=== PATIENT | female | born 1955 | race Caucasian/White ===

== ENCOUNTER 2017-05-18 20:57 | Emergency (ER) | payer BC ==
[2017-05-18 21:10] VITALS: BP 179/77
--- NOTE | 2017-05-18 21:32 | EDM.PDOC ---
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 Transvag total hysterectomy with bilateral oopherectomy on 04/28/16. Pt notes no complications until 5pm tonight, noted small spooting, took shower and sat on toilet with a large amount of bleeding and passing few grape size clots. Mild lower abdominal cramping this afternoon and just not feeling well. 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: Reports: Dysfunctional Uterine Bleeding Other OB/BYN History: hysterectomy 04/28/2017 Endocrine/Metabolic History: Reports: Hypothyroidism Social & Family History - Tobacco Use Smoking Status *Q: Unknown Ever Smoked - Caffeine Use Caffeine Use: Reports: Coffee, Soda - Recreational Drug Use Recreational Drug Use: No ED ROS GENERAL - Review of Systems Review Of Systems: See Below Constitutional: Reports: No Symptoms HEENT: Reports: Glasses Respiratory: Reports: No Symptoms Cardiovascular: Reports: No Symptoms GI/Abdominal: Reports: Abdominal Pain (mild lower abdominal ache) : Reports: Other (vaginal bleeding) Musculoskeletal: Reports: No Symptoms Skin: Reports: No Symptoms, Wound (lap incisions) Neurological: Reports: No Symptoms ED EXAM, RENAL/ - Physical Exam Exam: See Below Exam Limited By: No Limitations General Appearance: Alert, No Apparent Distress, Obese Eye Exam: Bilateral Eye: EOMI Ears: Normal External Exam Nose: Normal Inspection Throat/Mouth: Normal Inspection Head: Atraumatic, Other Neck: Normal Inspection, Full Range of Motion Respiratory/Chest: No Respiratory Distress, Lungs Clear, Normal Breath Sounds Cardiovascular: Normal Peripheral Pulses, Regular Rate, Rhythm GI/Abdominal: Normal Bowel Sounds, Soft, Tender (sprapubic), Other (Lap sites CDI no redness). No: Distended (Female) Exam: Vaginal Bleeding (Small amount bright red blood with thin small ropey clots at os. ) Extremities: Normal Inspection Neurological: Alert, Oriented Psychiatric: Normal Affect, Normal Mood Skin Exam: Warm, Dry, Intact, Normal Color Course - Vital Signs Last Recorded V/S: Last Vital Signs Temp 96.7 F 05/18/17 21:07 Pulse 89 05/18/17 21:07 Resp 20 05/18/17 21:07 BP 179/77 H 05/18/17 21:07 Pulse Ox 97 05/18/17 21:07 - Orders/Labs/Meds Labs: Laboratory Tests 05/18/17 05/18/17 05/18/17 Range/Units 21:36 21:36 21:36 WBC 11.5 H (5.0-10.0) 10^3/uL RBC 5.04 (4.2-5.4) 10^6/uL Hgb 14.5 (12.0-16.0) g/dL Hct 42.4 (37.0-47.0) % MCV 84.1 (80-100) fL MCH 28.8 (27.0-34.0) pg MCHC 34.2 (33.0-35.0) g/dL Plt Count 291 (150-450) 10^3/uL Neut % (Auto) 54.3 (42.2-75.2) % Lymph % (Auto) 21.5 (20.5-50.1) % Kenton % (Auto) 10.6 H (2-8) % Eos % (Auto) 12.2 H (1.0-3.0) % Baso % (Auto) 1.4 H (0.0-1.0) % PT 8.9 L (9.0-12.0) SEC INR 0.9 (0.9-1.2) Sodium 139 (135-145) mmol/L Potassium 2.8 L (3.6-5.0) mmol/L Chloride 97 L (101-111) mmol/L Carbon Dioxide 28.0 (21.0-31.0) mmol/L Anion Gap 16.8 BUN 20 H (7-18) mg/dL Creatinine 0.9 (0.6-1.3) mg/dL Est Cr Clr Drug Dosing 53.38 mL/min Estimated GFR (MDRD) > 60 BUN/Creatinine Ratio 22.22 Glucose 160 H (74-105) mg/dL Lactic Acid (0.5-2.2) mmol/L Calcium 9.3 (8.4-10.2) mg/dl Total Bilirubin 0.4 (0.2-1.0) mg/dL AST 20 (10-42) IU/L ALT 17 (10-60) IU/L Alkaline Phosphatase 91 (42-121) IU/L Total Protein 6.8 (6.7-8.2) g/dl Albumin 4.1 (3.2-5.5) g/dl Globulin 2.7 Albumin/Globulin Ratio 1.52 Amylase 58 (28-100) U/L Lipase 28 (22-51) U/L Blood Type Gel Antibody Screen 05/18/17 05/18/17 Range/Units 21:36 21:36 WBC (5.0-10.0) 10^3/uL RBC (4.2-5.4) 10^6/uL Hgb (12.0-16.0) g/dL Hct (37.0-47.0) % MCV (80-100) fL MCH (27.0-34.0) pg MCHC (33.0-35.0) g/dL Plt Count (150-450) 10^3/uL Neut % (Auto) (42.2-75.2) % Lymph % (Auto) (20.5-50.1) % Kent[place] % (Auto) (2-8) % Eos % (Auto) (1.0-3.0) % Baso % (Auto) (0.0-1.0) % PT (9.0-12.0) SEC INR (0.9-1.2) Sodium (135-145) mmol/L Potassium (3.6-5.0) mmol/L Chloride (101-111) mmol/L Carbon Dioxide (21.0-31.0) mmol/L Anion Gap BUN (7-18) mg/dL Creatinine (0.6-1.3) mg/dL Est Cr Clr Drug Dosing mL/min Estimated GFR (MDRD) BUN/Creatinine Ratio Glucose (74-105) mg/dL Lactic Acid 1.8 (0.5-2.2) mmol/L Calcium (8.4-10.2) mg/dl Total Bilirubin (0.2-1.0) mg/dL AST (10-42) IU/L ALT (10-60) IU/L Alkaline Phosphatase (42-121) IU/L Total Protein (6.7-8.2) g/dl Albumin (3.2-5.5) g/dl Globulin Albumin/Globulin Ratio Amylase (28-100) U/L Lipase (22-51) U/L Blood Type O POSITIVE Gel Antibody Screen Negative Meds: Medications Discontinued Medications Generic Name Dose Route Start Last Admin Trade Name Freq PRN Reason Stop Dose Admin Potassium Chloride 10 meq/ 100 mls @ 100 mls/hr 05/18/17 22:09 05/18/17 22:25 Premix IV 05/18/17 23:08 100 mls/hr ONETIME ONE Administration Sodium Chloride 1,000 mls @ 150 mls/hr 05/18/17 22:10 05/18/17 22:23 Normal Saline IV 05/19/17 04:49 150 mls/hr .BOLUS ONE Administration Iopamidol 100 ml 05/18/17 22:10 05/18/17 23:15 Isovue-300 (61%) IVPUSH 05/18/17 22:11 100 ml ONETIME ONE Administration Potassium Chloride 20 meq 05/18/17 22:09 05/18/17 22:25 Klor-Con 10 PO 05/18/17 22:10 20 meq ONETIME ONE Administration - Re-Assessments/Exams Free Text/Narrative Re-Assessment/Exam: 05/20/17 11:[address] 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 Accepting of patient in transfer for further evaluation of new onset vaginal bleeding in post op hysterectomy patient. Tx via private vehicle with daughter in stable condition. Patient instructed nothing to eat or drink enroute. Departure - Departure Time of Disposition: 01:06 Disposition: DC/Tfer to Acute Hospital 02 Condition: Fair Clinical Impression: Vaginal bleeding, S/P hysterectomy with oophorectomy - Discharge Information Instructions: Laparoscopically Assisted Vaginal Hysterectomy Referrals: [facility] [Primary Care Provider] - Forms: ED Department Discharge Additional Instructions: [facility] to see Dr. Gonzalez Nothing to eat or drink
[2017-05-18 22:00] LABS: CHLORIDE,CL 97 mmol/L (101-111); SODIUM,NA 139 mmol/L (135-145)
[2017-05-18] MEDS ORDERED: Potassium Chloride 10 MEQ in Premix Bag 1 BAG IV ONE (22:09)
[2017-05-18] MEDS ORDERED: Potassium Chloride 10 MEQ Tab.ER PO ONE (22:09)
[2017-05-18] MEDS ORDERED: Iopamidol 612 MG/ML 100 ML Bottle IVPUSH ONE (22:10)
[2017-05-18] MEDS ORDERED: Sodium Chloride 0.9% 1,000 ML IV ONE (22:10)
== END 2017-05-19 01:18 ==
LOC: DL.ED 20:57
DX: N93.9 Abnormal uterine and vaginal bleeding, unspecified (principal); I10 Essential (primary) hypertension; E03.9 Hypothyroidism, unspecified; Z90.710 Acquired absence of both cervix and uterus; Z88.0 Allergy status to penicillin; Z79.899 Other long term (current) drug therapy; Z98.890 Other specified postprocedural states
CPT/HCPCS: 36415; 74177; 80053; 82150; 83605; 83690; 85025; 85610; 86850; 86900; 86901; 87040; 96361; 96365; 99284; A9270; J3480; J7030; Q9967